=== PATIENT | female | born 1980 | race Caucasian/White ===

== ENCOUNTER → 2023-11-21 08:00 | Outpatient (REF) | payer OTHER, SELFPAY | LOC: HWWDC 08:00 | PROVIDERS: ATTENDING PHYSICIAN Nurse Practitioner Adult Health | DX: Z12.31 Encounter for screening mammogram for malignant neoplasm of breast (principal) | CPT/HCPCS: 77063; 77067 ==

== ENCOUNTER → 2024-12-30 15:32 | Outpatient (REF) | payer OTHER, SELFPAY | LOC: HWWDC 15:32 | PROVIDERS: ATTENDING PHYSICIAN Nurse Practitioner Adult Health | DX: Z12.31 Encounter for screening mammogram for malignant neoplasm of breast (principal) | CPT/HCPCS: 77063; 77067 ==